=== PATIENT | female | born 1965 | race Caucasian/White ===

== ENCOUNTER → 2023-09-25 01:40 | Outpatient (CLI) | payer OTHER, SELFPAY ==
--- NOTE | 2023-09-25 | DI.MRI_ITS ---
Exam(s) MR ABDOMEN WO/W EXAM: MR ABDOMEN WO/W CLINICAL HISTORY: ABD MASS, UNSPECIFIED ABD LOCATION R19.00 TECHNIQUE: Multiplanar multisequence MRI of the Abdomen was performed. MRCP sequences also perform ed. CONTRAST MATERIAL: IV Contrast: 20 mL of Dotarem contrast administered. COMPARISON: CT CT ABD/PELVIS W CONTRAST from 09/26/[address] ABD/PELVIS W CONTRAST from 10/12/2022 FINDINGS: Liver: Tiny cysts, superior lobe in inferior right lobe. Pancreas: 2 adjacent cystic areas versus cyst with septation at the tail of the pancreas, the larger loculation measuring 18 x 9 by 17 mm. The smaller measuring 10 by 10 x 13 millimeters. It has signi ficantly increased in size when compared with the prior CT where it measured 10 millimeters maximally . Signal characteristics are purely cystic. No evidence mural nodularity. No visible enhancement. The pancreatic duct is not dilated. Gallbladder and Bile Ducts: Unremarkable. Adrenals: Unremarkable. Kidneys: Small cyst lower pole left kidney. Circumaortic left renal vein. Spleen: Unremarkable. Aorta: Unremarkable. Soft Tissues: Unremarkable. Bone: Unremarkable. Lymph Nodes: Unremarkable. IMPRESSION: Significant interval increase in size of cystic lesion in tail pancreas. Otherwise it does not exhibi t suspicious features. DATA REPOSITORY:
[2023-09-25] MEDS: Normal Saline - Diluent 50 ML VIAL 25 ML IJ (08:20)
[2023-09-25] MEDS: Gadoterate meglumine 20 ML VIAL IVP (08:21)
== END ==
PROVIDERS: PCP Nurse Practitioner; Visit Provider Internal Medicine
DX: R19.00 Intra-abdominal and pelvic swelling, mass and lump, unspecified site (principal)
CPT/HCPCS: 74183

== ENCOUNTER 2023-10-03 10:28 | Emergency (ER) | payer OTHER, SELFPAY ==
[2023-10-03 10:36] VITALS: BP 159/117; PULSE 74; RESP 16; TEMP 36.7; O2SAT 100
--- NOTE | 2023-10-03 10:45 | DI.RAD_ITS ---
Exam(s) XR KNEE LT 4V AP,LAT,LU,PAT EXAM: XR KNEE LT 4V AP,LAT,LU,PAT CLINICAL HISTORY: fall, patellar pain. TECHNIQUE: 2D digital imaging was performed. COMPARISON: No exams were available for comparison FINDINGS: Four views. There is a prominent area of superficial soft tissue avulsion-laceration anteriorly below the level o f the patella anterior to the patellar ligament with some densities therein which are probably foreig n bodies. There is no patellar fracture. The shadow of the subjacent patellar ligament appears inta ct and there is no abnormal density within the anterior intra-articular Hoffa fat pad. There are no fractures in the knee and no prominent knee joint effusion. No joint space narrowing ev ident. Incidentally noted is a thin caudal pointing benign-appearing osteo chondroma off the fibular neck, s een on the lateral view. IMPRESSION: Prominent anterior soft tissue injury. No acute osseous findings. No prominent joint effusion. DATA REPOSITORY: RADIATION DOSE DELIVERED:
--- NOTE | 2023-10-03 10:53 | ED.GENADUL_ITS ---
Discharge Plan Disposition Patient Disposition: Home Condition: Good Discharge Details Clinical Impression: Laceration of knee Primary Care Provider: Juliet Aguirre ED Provider: Judi Simon Home Meds and New Rx's Prescriptions: New cephalexin 500 mg capsule 500 mg PO QID 5 Days Qty: 20 0RF Continued sumatriptan succinate 25 MG tablet 25 mg PO ONCE magnesium oxide 500 MG capsule 500 mg PO DAILY Vitamin D3 Complete 1 EACH tablet 1 ea PO DAILY fluoxetine 20 mg capsule 20 mg PO DAILY Discharge Instructions Instructions: Laceration Repair With Stitches ED Additional Instructions: X-rays reassuring here today. No evidence of fracture or dislocation. However, with your laceration and the location it is, I am concerned that if you are bending her knee this may put excess pressure on the area. Please continue with the brace for the next 7 days. You may take this off when you are resting but try to put this on when you are up and around. Encouraged rest, ice, elevation. Tylenol and ibuprofen as needed for discomfort. Please leave current dressing on until tomorrow, after that time you may shower and wash with running water and soap, please apply clean bandage after that to prevent rubbing against the brace. Monitor wound for signs of infection clued redness, warmth, drainage, increased pain, fever/chills. Your tetanus was updated today. Given the contamination of this wound, will have you on antibiotics for the next 5 days, these were sent to your pharmacy. If you develop any new or worsening symptoms please seek care urgently once again. Otherwise, please return in 10 days for reevaluation and possible suture removal. Referrals: Juliet Aguirre, [employer] [Primary Care Provider] - [facility] General Date/Time Provider Initiated Documentation: 10/03/23 10:43 . Limitations to Documentation: no limitations . Information obtained by: patient, family () and RN notes reviewed . H istory of Present Illness 58 year old F presents to the emergency department with the chief complaint of left knee pain, laceration after fall, described as moderate, with intensity rated at 4. Quality is described as sharp, and is localized to the left and lower extremity. Patient reports no radiation. Patient started experiencing this minute(s) and it has been constant. Immobilization improves symptom(s), Movement worsens symptoms . Patient notes no other symptoms.. Patient did receive the following treatments prior to arrival, none Related Data Home Medications Medication Instructions Recorded Confirmed Vitamin D3 Complete 18 mg iron-800 1 ea PO DAILY 04/17/16 10/03/23 mcg-150 mg tablet ([id number]-FA-herbal cmplx#[id number]) magnesium oxide 500 mg capsule 500 mg PO DAILY 04/17/16 10/03/23 sumatriptan succinate 25 mg tablet 25 mg PO ONCE 04/17/16 10/03/23 cephalexin 500 mg capsule 500 mg PO QID 5 days #20 caps 10/03/23 fluoxetine 20 mg capsule 20 mg PO DAILY 10/03/23 10/03/23 Previous Rx's Medication Instructions Recorded cephalexin 500 mg capsule 500 mg PO QID 5 days #20 caps 10/03/23 Allergies Allergy/AdvReac Type Severity Reaction Status Date / Time codeine Allergy Hives Unverified 10/03/23 10:36 morphine Allergy Hives Unverified 10/03/23 10:36 General Stated Complaint: Orthopedic FRANSISCO: 3 Review of Systems Constitutional Constitutional: Reports as per HPI, Denies fever(s), Denies headache(s) and Denies weakness ENT Ears, Nose, Mouth, and Throat: Denies headache(s) Cardiovascular Cardiovascular: Reports as per HPI Respiratory Respiratory: Reports as per HPI Musculoskeletal Musculoskeletal: Reports as per HPI and Denies tingling Integumentary/Breasts Skin/Breast: Reports as per HPI Neurologic Neurologic: Reports as per HPI, Denies headache(s), Denies tingling, Denies paresthesias and Denies weakness Exam Const General: cooperative, healthy appearing, comfortable, no acute distress, well developed and well groomed Nutritional Appearance: well nourished and overweight Orientation: alert and awake Resp Effort & Inspection: normal respiratory effort, able to speak in complete sentences and no respiratory distress Cardio Rate: regular rate Rhythm: regular rhythm Skin Trauma: laceration (left knee) Neuro General: patient alert and patient awake Cognition: normal cognition Speech: speech normal Gait: antalgic Motor: muscle tone normal throughout Sensory Exam: no sensory deficits noted Extrem Knee images: 2 1. Exam of the left lower extremity significant for 2+ distal pulses, intact sensation. She does have some swelling over the patella and pain with palpation over this area. No pain over the proximal tibia or fibula. No pain over the ankle, full ROM, sensation intact. Laceration as noted, large amount of dirt on the wound. Course Vital Signs Vital signs: Vital Signs Temperature 36.7 C 10/03/23 10:36 Pulse 74 10/03/23 10:36 Respiratory Rate 16 10/03/23 10:36 Blood Pressure 159/117 H 10/03/23 10:36 Pulse Oximetry 100 10/03/23 10:36 Temperature 36.7 C 10/03/23 10:36 Temperature Source Temporal Artery Scan 10/03/23 10:36 Pulse 74 10/03/23 10:36 Respiratory Rate 16 10/03/23 10:36 Respiratory Effort Normal, Non-Labored 10/03/23 10:38 Blood Pressure 159/117 H 10/03/23 10:36 Blood Pressure Position Sitting 10/03/23 10:36 Pulse Oximetry 100 10/03/23 10:36 Oxygen Delivery Method Room Air 10/03/23 10:36 Oxygen Flow Rate 0 10/03/23 10:36 Pain Level 4 10/03/23 10:36 Procedures Laceration Laceration 1: Site: lower extremity Side (If applicable): left Size (cm): 10 Description: flap and contaminated Depth: simple, single layer Local Anesthetic: Lidocaine 1% and with Epi Amount of anesthesia used (mL): 15 Pre-repair: wound explored, irrigated extensively, deep structures intact and extensive debridement Skin layer closed with: nylon Size (cm): 4-0 Number of sutures: 7 Technique: horizontal mattress Medical Decision Making Patient is a pleasant 58-year-old female presenting today with chief complaint of left knee laceration and pain after fall. She reports that she slipped on some loose gravel while carrying buckets of water for chores. Denies other injury at the time of the incident. Do not strike her head. States that she had small area of ecchymosis on the right lateral thigh but no real pain with this, no pain with ambulation on the right leg. States she has been ambulatory since the fall. Denies any numbness or tingling in the left leg. No previous surgeries or injuries to this knee. She denies any numbness or tingling. Tetanus is not updated. On exam, patient appears nontoxic. Hemodynamically stable. 2+ distal pulses in the left lower extremity. She does have a large laceration directly over the left knee that turned to the right ankle with a large amount of dirt. This was around farm, concern for large amount of contamination. She is no pain with palpation over the proximal tibia or fibula. Full range of motion of the ankle with no discomfort. She does have notable pain with palpation over the patella and with palpation laterally over the patella. No significant joint joint effusion. No pain to palpation about the thigh. Concern for potential patellar fracture, will obtain x-ray. Will update tetanus. Will give Tylenol and ibuprofen to help with discomfort. Discussed concerns for contamination with the patient. XR without evidence of fx or dislocation. Patient discussed were/benefits as well as expected procedural steps associated with wound irrigation and closure. She voiced understanding and wished to proceed. Please see procedure note. This is performed using standard sterile technique. The wound was cleansed with over 1 L of fluid, all dirt and debris was aggressively removed. She did have fair amount of dirt in the wound and this was able to be physically extracted. Will patient was anesthetized prior with 1% lidocaine with epinephrine, good anesthetic effect. Wound edges were then reapproximated and closed with horizontal mattress and simple interrupted sutures. No tension was remaining in the wound. I did try to leave some spaces in between to allow for drainage as this wound was initially quite contaminated. Given the mechanism, I do feel that prophylactic antibiotics are appropriate and will place the patient on Keflex. Her tetanus was updated here. Will place in a knee immobilizer, concerned for patient putting excess pressure on the wound potentially leading to opening of the sutures. We discussed wound care in depth. Encouraged rest, ice, elevation. She will return in 10 days for reevaluation as well as possible removal of the sutures. Signs symptoms of infection were discussed, discussed concerns that should prompt reevaluation emergently. All of her questions and concerns were addressed and she is in agreement this plan. Quality:SDOH Health Related Social Needs: 2 No Data to Display PFSH All Active Problems (Updated 10/03/23 @ 13:25 by CARLEE Srivastava) Laceration of knee (Acute) Medical History (Updated 10/03/23 @ 13:25 by CARLEE Srivastava) Skin lesion Lymphedema Migraine Edema Indigestion Hip pain Dysfunctional uterine bleeding Thyroid nodule Presbyopia Tenosynovitis of thumb Surgical History (Updated 01/16/18 @ 14:37 by [employer] MA) Total replacement of hip Reduction mammoplasty (12/31/04) Family History Mother Diabetes Essential hypertension Hyperlipidemia Social History Smoking/Tobacco Use Status: Never Smoking risk assessment performed?: Yes Alcohol Intake: never Drug use: Never Substance use type: does not use Housing: house Do you feel safe at home: Yes Do you feel safe in your relationship?: Yes Additional Social history: at side, very supportive
[2023-10-03] MEDS: Acetaminophen 500 MG TAB 1000 MG PO (11:01)
[2023-10-03] MEDS: Ibuprofen 600 MG TAB PO (11:01)
[2023-10-03 11:34] VITALS: BP 155/82; PULSE 66; RESP 18
== END 2023-10-03 13:47 | disposition home or self-care (01) ==
PROVIDERS: Emergency Provider Physician Assistant; PCP Nurse Practitioner
DX: S81.012A Laceration without foreign body, left knee, initial encounter (principal); W19.XXXA Unspecified fall, initial encounter
CPT/HCPCS: 12004; 90715; 99284; 73564

== ENCOUNTER 2023-10-05 11:48 | Emergency (ER) | payer OTHER, SELFPAY ==
[2023-10-05 11:55] VITALS: BP 144/73; PULSE 79; RESP 16; TEMP 36.8; O2SAT 97
[2023-10-05 12:01] VITALS: BP 144/73; PULSE 79; RESP 16; TEMP 36.8; O2SAT 97
--- NOTE | 2023-10-05 12:08 | W.ED.GENAD ---
Discharge Plan Disposition Patient Disposition: Home Condition: Stable Discharge Details Clinical Impression: Cellulitis of knee, left, Laceration of knee, left, complicated Primary Care Provider: Juliet Aguirre ED Provider: Kelsie Kahn Home Meds and New Rx's Prescriptions: New cephalexin 500 mg tablet 500 mg PO BID 5 Days Qty: 10 0RF metronidazole 500 mg tablet 500 mg PO BID 7 Days Qty: 14 0RF No Action sumatriptan succinate 25 MG tablet 25 mg PO ONCE magnesium oxide 500 MG capsule 500 mg PO DAILY Vitamin D3 Complete 1 EACH tablet 1 ea PO DAILY fluoxetine 20 mg capsule 20 mg PO DAILY cephalexin 500 mg capsule 500 mg PO QID 5 Days Qty: 20 0RF Discharge Instructions Instructions: Wound Infection, Cellulitis (Skin Infection), Adult ED Additional Instructions: Please continue the cephalexin as previously prescribed. I am adding on 5 days of Keflex twice daily along with Flagyl 500 mg twice daily. You were given the first dose here in the emergency department. Please take these medications with yogurt or a probiotic daily. You were placed on the care management list to follow-up with orthopedics either Sunday or Sunday. Please call first thing Sunday morning to make an appointment. Please be seen sooner if any increase in redness, red streaks past the line, fever chills, worsening swelling or significant drainage from the incision site or worsening problems bending your knee. Please allow 2 to 3 days of the antibiotic. Stand Alone Forms: Work Release Referrals: Alexey Isaac MD [ [facility] STAFF PHYSICIAN] - 3 days HPI General Mode of arrival: ambulatory. Date/Time Provider Initiated Documentation: 10/05/23 11:57. Limitations to Documentation: no limitations. Information obtained by: patient, RN notes reviewed and old records reviewed. HPI Narrative: 58-year-old female presents to the ER with chief complaint of possible infection to her left knee status post injury with contaminated laceration. Patient was seen here 48 hours ago and had an extensive repair to her left knee after tripping and falling on some gravel. She has been on cephalexin 4 times a day has taken 7 doses of 500 mg. She reports patient reports that last night she did have some chills and noticed some increased redness which measures at least 15 cm x 15 cm no purulent drainage noted. She is able to bend her left knee to approximately 45 degrees. No red streaks noted. She is nontachycardic afebrile upon arrival. No other associated symptoms or concerns. Related Data Home Medications Medication Instructions Recorded Confirmed Vitamin D3 Complete 18 mg iron-800 1 ea PO DAILY 04/17/16 10/03/23 mcg-150 mg tablet ([id number]-FA-herbal cmplx#[id number]) magnesium oxide 500 mg capsule 500 mg PO DAILY 04/17/16 10/03/23 sumatriptan succinate 25 mg tablet 25 mg PO ONCE 04/17/16 10/03/23 cephalexin 500 mg capsule 500 mg PO QID 5 days #20 caps 10/03/23 fluoxetine 20 mg capsule 20 mg PO DAILY 10/03/23 10/03/23 cephalexin 500 mg tablet 500 mg PO BID 5 days #10 tabs 10/05/23 metronidazole 500 mg tablet 500 mg PO BID 7 days #14 tabs 10/05/23 Previous Rx's Medication Instructions Recorded cephalexin 500 mg capsule 500 mg PO QID 5 days #20 caps 10/03/23 cephalexin 500 mg tablet 500 mg PO BID 5 days #10 tabs 10/05/23 metronidazole 500 mg tablet 500 mg PO BID 7 days #14 tabs 10/05/23 Allergies Allergy/AdvReac Type Severity Reaction Status Date / Time codeine Allergy Hives Unverified 10/03/23 10:36 morphine Allergy Hives Unverified 10/03/23 10:36 General Stated Complaint: Cellulitis FRANSISCO: 3 Review of Systems All systems reviewed & are unremarkable except as noted in HPI and below Musculoskeletal Musculoskeletal: Reports as per HPI Integumentary/Breasts Skin/Breast: Reports erythema, Reports skin pain and Reports skin swelling Exam Const General: cooperative, healthy appearing and well developed Nutritional Appearance: well nourished Orientation: alert, awake and oriented x3 Extrem General: normal to inspection Left lower extremity: hip/thigh Details: normal to inspection, knee Details: abnormal to inspection (Well-approximated sutured laceration noted to the anterior left knee with surrounding erythema) Details: erythematous and lower leg Details: normal to inspection Knee images: 1. Erythema 2. Sutured laceration 3. Sutured laceration Course Vital Signs Vital signs: Vital Signs Temperature 36.8 C 10/05/23 11:55 Pulse 79 10/05/23 11:55 Respiratory Rate 16 10/05/23 11:55 Blood Pressure 144/73 H 10/05/23 11:55 Pulse Oximetry 97 10/05/23 11:55 Temperature 36.8 C 10/05/23 12:01 Temperature Source Oral 10/05/23 12:01 Pulse 79 10/05/23 12:01 Respiratory Rate 16 10/05/23 12:01 Respiratory Effort Normal, Non-Labored 10/05/23 12:01 Blood Pressure 144/73 H 10/05/23 12:01 Blood Pressure Position Supine 10/05/23 12:01 Pulse Oximetry 97 10/05/23 12:01 Oxygen Delivery Method Room Air 10/05/23 12:01 Oxygen Flow Rate 0 10/05/23 12:01 Medical Decision Making 58-year-old female presents to the ER with chief complaint of possible infection to her left knee status post injury with contaminated laceration. Patient was seen here 48 hours ago and had an extensive repair to her left knee after tripping and falling on some gravel. She has been on cephalexin 4 times a day has taken 7 doses of 500 mg. She reports patient reports that last night she did have some chills and noticed some increased redness which measures at least 15 cm x 15 cm no purulent drainage noted. She is able to bend her left knee to approximately 45 degrees. No red streaks noted. She is nontachycardic afebrile upon arrival. No other associated symptoms or concerns. Workup ordered including CBC CMP holders x 2 lactate IV 2 g Ancef ordered. Will consult with orthopedics. I was able to touch base with orthopedics who recommended additional antibiotics for contaminated wound. Will add additional Flagyl 500 mg p.o. first given now, Rocephin 1 g IV piggyback. All her questions were answered to the best my ability, patient discharged in hemodynamically stable condition. Patient remained afebrile during stay. Patient was placed on the care management list for follow-up with orthopedics. This text was generated using [email or web address] system, please disregard any oddities of phrase or misspellings. Quality:SDOH Health Related Social Needs: No Data to Display PFSH All Active Problems (Updated 10/05/23 @ 13:38 by Kelsie Kahn NP) Laceration of knee, left, complicated (Acute) Cellulitis of knee, left (Acute) Laceration of knee (Acute) Medical History Skin lesion Lymphedema Migraine Edema Indigestion Hip pain Dysfunctional uterine bleeding Thyroid nodule Presbyopia Tenosynovitis of thumb Surgical History Total replacement of hip Reduction mammoplasty (12/31/04) Family History Mother Diabetes Essential hypertension Hyperlipidemia Social History Smoking/Tobacco Use Status: Never Smoking risk assessment performed?: Yes Alcohol Intake: never Drug use: Never Substance use type: does not use Housing: house Do you feel safe at home: Yes Do you feel safe in your relationship?: Yes Additional Social history: at side, very supportive
[2023-10-05] MEDS: ceFAZolin 2 GM/50 ML BAG IVPB (12:30)
[2023-10-05 12:31] LABS: Abs Immature Grans 0.03 10^3/uL (0.0-0.06); Absolute Basophil Count 0.04 10^3/uL (0.0-0.2); Absolute Eosinophil Count 0.16 10^3/uL (0.0-0.7); Absolute Lymphocyte Count 1.48 10^3/uL (1.2-3.4); Absolute Monocyte Count 0.96 10^3/uL (0.1-0.8); Basophils % 0.5 %; Eosinophils % 1.9 %; HCT 37.6 % (36.0-46.0); HGB 12.5 g/dL (11.2-15.7); Immature Grans % 0.4 %; Lymphocytes % 17.7 %; MCH 31.3 pg (27.0-33.0); MCHC 33.2 % (32.0-36.0); MCV 94 fL (80-95); MPV 9.6 fL (8.0-11.0); Monocytes % 11.5 %; Platelet Count 259 10^3/uL (130-400); RBC 3.99 10^6/uL (3.93-5.22); RDW 13.3 % (11.7-14.6); RDW-SD 46.3 fL; WBC 8.37 10^3/uL (4.4-10.8)
[2023-10-05 12:52] LABS: ALT 27 U/L (14-59); AST 11 U/L (15-37); Albumin 3.4 g/dL (3.4-5.0); Alkaline Phosphatase 82 U/L (46-116); Anion Gap 6.3 mmol/L (3-11); BUN 19 mg/dL (7-18); Bilirubin, Total 0.45 mg/dL (0.2-1.0); CO2 26.7 mmol/L (21.0-32.0); CREATININE 0.7 mg/dL (0.55-1.02); Calcium 9.4 mg/dL (8.5-10.1); Chloride 107 mmol/L (98-107); Estimated GFR 100.19 (mL/min/1.73m2); Glucose 132 mg/dL (74-106); Magnesium 1.8 mg/dL (1.8-2.4); Potassium 3.6 mmol/L (3.5-5.1); Sodium 140 mmol/L (136-145)
[2023-10-05] MEDS: cefTRIAXone 1 GM/50 ML BAG IVPB (13:25)
[2023-10-05] MEDS: metroNIDAZOLE 500 MG TAB PO (13:27)
[2023-10-05] MEDS: Normal Saline Flush 10 ML SYR IVP (13:27)
[2023-10-05 13:45] VITALS: BP 149/79; PULSE 77; RESP 16; TEMP 36.2; O2SAT 97
== END 2023-10-05 13:57 | disposition home or self-care (01) ==
PROVIDERS: Emergency Provider Registered Nurse Emergency; PCP Nurse Practitioner
DX: S51.012D Laceration without foreign body of left elbow, subsequent encounter (principal); L03.116 Cellulitis of left lower limb; X58.XXXD Exposure to other specified factors, subsequent encounter
CPT/HCPCS: 80053; 87040; 96365; 96367; 99284; 83605; 83735; 85025; 99283; J0690; J0696

== ENCOUNTER 2023-11-28 10:57 | Outpatient (CLI) | payer OTHER, SELFPAY ==
[2023-11-28 11:50] LABS: BUN 23 mg/dL (7-18); CREATININE 0.6 mg/dL (0.55-1.02); Calcium 9.6 mg/dL (8.5-10.1); Calculated LDL 200 mg/dL (<100); Chloride 105 mmol/L (98-107); Cholesterol 284 mg/dL (<200); Estimated GFR 103.98 (mL/min/1.73m2); Glucose 102 mg/dL (74-106); HDL Cholesterol 62 mg/dL (40-60); Potassium 4.1 mmol/L (3.5-5.1); Sodium 140 mmol/L (136-145); TSH (W/Ref FT4) 1.95 uIU/mL (0.36-3.74); Triglyceride 114 mg/dL (<150)
== END 2023-11-28 10:58 | disposition home or self-care (01) ==
LOC: LBO 10:57
PROVIDERS: PCP Physician Assistant; Visit Provider Registered Nurse
DX: Z51.81 Encounter for therapeutic drug level monitoring (principal); E04.1 Nontoxic single thyroid nodule; E78.2 Mixed hyperlipidemia
CPT/HCPCS: 36415; 80048; 80061; 84443